=== PATIENT | female | born 1990 | race Caucasian/White ===

== ENCOUNTER 2016-10-06 09:52 | Outpatient (CLI) | payer OTHER ==
--- NOTE | 2016-10-06 11:30 | DIAGNOSTIC IMAGING REPORT ---
PROCEDURE: US OB DETAILED ANATOMIC INDICATION: ANATOMY TECHNIQUE: Powell scale, color, and spectral Doppler images of the second trimester gravid uterus were obtained. COMPARISON: None. FINDINGS: A single living intrauterine is in breech presentation. There is regular cardiac activity at a rate of 145 beats per minute. The placenta is anterior and away from the internal cervical os. The cervix is closed measuring approximately 3.5 cm in length. The amniotic fluid volume is subjectively normal. Biparietal diameter 4.5 cm at 19 weeks and 5-day Head circumference 17.4 cm at 19 weeks and 6 days Abdominal circumference 16.4 weeks at 21 weeks and 3 days Femur length 3.3 cm at 20 weeks and 3 days Head to abdominal circumference ratio and femur length to abdominal circumference ratios are normal. Estimated weight 380 g Composite gestational age 20 weeks and 3 days, BOLA 02/20/2017 There was visualization of a number of normal structures including the intracranial contents, facial features, nuchal region, four-chamber heart and outflow tracts to the extent that could be visualized, diaphragm, fluid-filled stomach, kidneys, abdomen, urinary bladder, upper and lower extremities, and genitals. A three-vessel umbilical cord, normal and placental cord insertion sites were seen. The spine was not well seen. Recommend repeat study in 2 weeks. IMPRESSION: 1. Single living intrauterine with a composite gestational age of 20 weeks and 3 days, BOLA 02/20/2017 2. Symmetric and normal anatomy except the spine was not well seen. Recommend repeat study in 2 weeks.
== END 2016-10-06 23:00 ==
LOC: US SRH 09:52
DX: Z34.92 Encounter for supervision of normal pregnancy, unspecified, second trimester (principal); Z3A.20 20 weeks gestation of pregnancy

== ENCOUNTER 2016-12-31 14:08 | Outpatient (CLI) | payer OTHER ==
--- NOTE | 2016-12-31 17:16 | DIAGNOSTIC IMAGING REPORT ---
PROCEDURE: US OB RE-EVALUATION INDICATION: SMALL FOR DATES TECHNIQUE: Powell scale, color, and spectral Doppler images of the second trimester gravid uterus were obtained. COMPARISON: OB ultrasound dated 10/06/2016 FINDINGS: A single living intrauterine is in vertex presentation. There is regular cardiac activity at a rate of 133 beats per minute. The placenta is anterior and fundal and away from the internal cervical os. The cervix is closed measuring approximately 4.7 cm in length. The amniotic fluid volume is subjectively normal. Biparietal diameter 8.5 cm at 34 weeks and 2 days Head circumference 31.1 cm at 34 weeks and 5-day Abdominal circumference 29 cm at 33 weeks and 0 days Femur length 6.3 cm at 32 weeks and 5 days Head to abdominal circumference ratio and femur length to abdominal circumference ratios are normal. Estimated weight 2147 g Composite gestational age 33 weeks and 5 days, BOLA 02/13/2017 There was visualization of the spine chest stomach cord insertion bladder and kidneys. IMPRESSION: 1. Single living intrauterine with a composite gestational age of 33 weeks and 5 days, BOLA 02/13/2017 2. Symmetric and normal anatomy with spine visualization today.
== END 2016-12-31 23:00 | disposition home or self-care (01) ==
LOC: US SRH 14:08
DX: Z34.93 Encounter for supervision of normal pregnancy, unspecified, third trimester (principal); Z3A.33 33 weeks gestation of pregnancy

== ENCOUNTER 2017-01-08 10:27 | Outpatient (CLI) | payer OTHER | END 2017-01-08 11:30 | disposition home or self-care (01) | LOC: OBC SRH 10:27 → OB SRH 10:29 → OBC SRH 11:30 | DX: Z03.71 Encounter for suspected problem with amniotic cavity and membrane ruled out (principal); Z3A.34 34 weeks gestation of pregnancy ==